=== PATIENT | male | born 1980 | race Hispanic/Latino ===

== ENCOUNTER 2019-05-23 10:57 | Emergency (ER) | payer BC, SELFPAY ==
--- NOTE | 2019-05-23 10:59 | ED.GENADULT ---
HPI - General Adult General Chief complaint: Wound/Laceration Stated complaint: Wound Time Seen by Provider: 05/23/19 10:59 Source: patient and family Mode of arrival: ambulatory Limitations: no limitations History of Present Illness HPI narrative: 38-year-old male patient presents to the [facility] with complaints of a wound to his left thigh x3 days. Patient states that he was working on a car and the jeff slipped and the axle of the car landed on his left thigh. Patient able to walk with steady gait. Patient does have a scabbed over wound to the left thigh. Patient states he is also an insulin-dependent diabetic but does not check his sugars often. Denies any fevers. Patient states he has been taking Aleve for his pain. Related Data Home Medications Medication Instructions Recorded Confirmed insulin glargine [Basaglar KwikPen 100 unit SUBCUT DAILY 05/23/19 05/23/19 U-100 Insulin] liraglutide [Victoza 2-Myles] 1.8 mg SUBCUT DAILY 05/23/19 05/23/19 Allergies Allergy/AdvReac Type Severity Reaction Status Date / Time No Known Allergies Allergy Verified 05/23/19 11:20 Review of Systems Review of Systems: Narrative: CONSTITUTIONAL: Denies fever, chills, or sweats. EYES: Denies visual changes, redness, or discharge. ENT: Denies rhinorrhea, congestion, sore throat, or otalgia. CARDIOVASCULAR: Denies chest pain, palpitations, or edema. RESPIRATORY: Denies cough or dyspnea. GASTROINTESTINAL: Denies abdominal pain, nausea, vomiting, or diarrhea. GENITOURINARY: Denies dysuria or hematuria. SKIN: Denies rash or itching. Positive wound to left upper thigh x3 days. MUSCULOSKELETAL: Denies back pain, joint pain, or myalgia. NEUROLOGIC: Denies headache, numbness, or weakness. PSYCHIATRIC: Denies anxiety or depression. [facility] Past Medical History Medical History (Updated 05/23/19 @ 11:37 by PUMA Ray) Diabetes Surgical History Surgical History (Updated 05/23/19 @ 11:00 by PUMA Ray) History of orthopedic surgery Left shoulder Social History Social History Smoking status: Never smoker Alcohol intake: current Comments At the time of my signature I agree with nursing past medical history, surgical, social, and family history. There is no relevant family history pertinent to the presenting complaint. Exam Narrative: Exam Narrative: GENERAL: Well-appearing, well-nourished, and in no acute distress. HEAD: Normocephalic, atraumatic. EYES: PERRLA and EOMI. ENT: Nares clear, no rhinorrhea or epistaxis. Mucous membranes moist. NECK: Supple. No lymphadenopathy CHEST: Clear to auscultation. No respiratory distress. HEART: Regular rate and rhythm. No murmur heard. Normal peripheral pulses. ABDOMEN: Soft, nontender, nondistended, normal active bowel sounds. EXTREMITIES: Patient has a scabbed over wound to the anterior side of the upper left thigh with 2 wounds. The first wound measuring approximately 3 cm wide and the second wound measuring approximately 9 cm wide. Patient does have surrounding erythema and slight warmth. There is circumferential swelling and bruising to the left upper thigh. Also noted some bruising noted to the left lower leg that extends down to the foot with slight swelling noted to the left ankle. No pain noted to the left ankle, foot or lower extremity. Does have slight tenderness noted to the left upper thigh where the wound is. Patient able to walk with a steady gait on the leg. There is no drainage noted coming from the wound. SKIN: Warm, dry, no rash. NEURO: No focal deficits. Alert and oriented x3. Course Reevaluation(s) Reevaluation #1: Discussed with patient that his sugar is a little high but nothing that I am terribly concerned about in regards to DKA. Discussed with patient the fact that he is not running any fevers and is able to walk with a steady gait on that leg is reassuring. Discussed with patient th
[2019-05-23 11:11] VITALS: BP 148/77; PULSE 58; RESP 16; TEMP 36.7; O2SAT 99
[2019-05-23 11:23] LABS: Glucose Point of Care 230 (65-105)
--- NOTE | 2019-05-23 11:39 | PC.NURSE ---
1135- Could not scan medication. Med was entered as non-formulary, had to be over-ridden in pyxis, would not scan. Verified five medication rights with second RN Felisha Holcomb prior to administration.
== END 2019-05-23 11:50 | disposition home or self-care (01) ==
PROVIDERS: Emergency Provider Nurse Practitioner Family
DX: L03.116 Cellulitis of left lower limb (principal); Z23 Encounter for immunization; E10.9 Type 1 diabetes mellitus without complications
CPT/HCPCS: 82948; 90471; 90715; 99213; A9270; G0463